=== PATIENT | female | born 1950 | race Two or more races ===

== ENCOUNTER 2019-05-20 12:25 | Emergency (ER) | payer OTHER ==
[~2019-05-20] VITALS: Ht 157.5 cm; Wt 79.8 kg
[2019-05-20] MEDS ORDERED: DIOVAN320 MG (13:14)
[2019-05-20] MEDS ORDERED: RESTORIL30 M1 (13:14)
[2019-05-20] MEDS ORDERED: SYNTHROID175 MCG (13:14)
== END 2019-05-20 20:34 | disposition home or self-care (01) ==
LOC: ER 12:25
DX: N20.0 Calculus of kidney (principal); K29.70 Gastritis, unspecified, without bleeding

== ENCOUNTER 2019-05-22 16:46 | Emergency (ER) | payer OTHER ==
[~2019-05-22] VITALS: Ht 157.5 cm; Wt 79.8 kg
[~2019-05-22 16:46] MED LIST: DIOVAN320 MG; RESTORIL30 M1; SYNTHROID175 MCG
[2019-05-22] MEDS ORDERED: SINGULEAR (16:58)
== END 2019-05-23 09:31 | disposition home or self-care (01) ==
LOC: ER 16:46
DX: E87.6 Hypokalemia (principal); E86.0 Dehydration; K29.70 Gastritis, unspecified, without bleeding